=== PATIENT | female | born 1990 | race Two or more races ===

== ENCOUNTER 2017-02-16 10:42 | Emergency (ER) | payer MEDICAID ==
[2017-02-16] MEDS ORDERED: DOXYcycline CAP(*) 100 MG PO ONE (13:15)
[2017-02-16 13:25] VITALS: BP 115/66
--- NOTE | 2017-02-16 13:30 | UC ---
Gilberto Samayoa Alok, scribed for Mali Scales MD on 02/16/17 at 1321 . Skin Complaint HPI - HPI Summary HPI Summary: 26 y/o female presents to the accompanied by her [facility] aide for a tick and tick bite at the right inguinal area found this morning. The patient states that the tick was able to be removed and reported to be in tact. Pt states most likely was received yesterday while walking outdoors but can't be sure. Pt denies pain or erythema at bite site as well as denies dysuria, fever, chills , or rashes. No previous h/o tick bites / wounds. Pt has NKDA. pt without any other concerns. pt states tick was not "super small" but unable to quantify size Patient medication reviewed this visit. - History of Current Complaint Time Seen by Provider: 02/16/17 13:04 Stated Complaint: TICK BITE Hx Obtained From: Patient Hx Last Menstrual Period: DEPO ?: No Onset/Duration: Gradual Onset, Lasting Days, Still Present Skin Exposure Onset/Duration: Days Ago Timing: Constant Onset Severity: Moderate Current Severity: Moderate Pain Intensity: 0 Pain Scale Used: 0-10 Numeric Location: Other - right inguinal Character: Raised - Tick Bite Aggravating: Nothing Alleviating: Nothing Associated Signs & Symptoms: Negative: Fever, Chills, Rash Related History: Insect Bite/Sting - Tick - Allergy/Home Medications Allergies/Adverse Reactions: Allergies Allergy/AdvReac Type Severity Reaction Status Date / Time No Known Allergies Allergy Verified 02/16/17 13:27 Review of Systems Constitutional: Negative Skin: Other - tick bite, tick removed from right inguinal area Eyes: Negative ENT: Negative Respiratory: Negative Cardiovascular: Negative Gastrointestinal: Negative Genitourinary: Negative Motor: Negative Neurovascular: Negative Musculoskeletal: Negative Neurological: Negative Psychological: Negative All Other Systems Reviewed And Are Negative: Yes PMH/Surg Hx/FS Hx/Imm Hx Previously Healthy: Yes Psychological History Of: Reports: Anxiety, Depression, Bipolar Disorder - Surgical History Surgical History: None - Family History Known Family History: Negative: Cardiac Disease - Social History Occupation: Employed Full-time Alcohol Use: None Substance Use Type: None Smoking Status (MU): Never Smoked Tobacco Physical Exam Triage Information Reviewed: Yes Appearance: Well-Appearing, No Pain Distress, Well-Nourished Vital Signs: Initial Vital Signs Temp 98.9 F 02/16/17 13:22 Pulse 75 02/16/17 13:22 Resp 18 02/16/17 13:22 BP 115/66 02/16/17 13:22 Pulse Ox 98 02/16/17 13:22 Vital Signs Reviewed: Yes Eye Exam: Normal Eyes: Positive: Conjunctiva Clear, Conjunctiva Inflamed ENT Exam: Normal ENT: Positive: Pharynx normal. Negative: Nasal drainage Dental Exam: Normal Neck exam: Normal Neck: Positive: Supple, Nontender, No Lymphadenopathy Respiratory Exam: Normal Respiratory: Positive: Chest non-tender, Lungs clear Cardiovascular Exam: Normal Cardiovascular: Positive: RRR, No Murmur, Pulses Normal Abdominal Exam: Normal Abdomen Description: Positive: Nontender Bowel Sounds: Positive: Present Musculoskeletal Exam: Normal Neurological Exam: Normal Neurological: Positive: Alert, Muscle Tone Normal, Fatigued Psychological Exam: Normal Skin Exam: Normal Skin: Positive: rashes, breakdown - right inguinal area - pt with small, raised erythema (3mm) from report recent tick removal. No retrained part visible Pt's body examined - no other ticks noted, Other - right inguinal area - pt with small, raised erythema (3mm) from report recent tick removal. No retrained part visible Course/Dx - Course Course Of Treatment: Pt reports removed a tick from right inguinal area this morning. No retained parts noted. d/w pt and aide at length - unclear duration of attachment, tick not available for review. Pt given prophylaxis doxycycline. forms completed - Diagnoses Provider Diagnoses: tick bite Discharge - Discharge Plan Condition: Stable Disposition: HOME Patient Education Materials: Tick Bite (ED) Referrals: Vance Griffin MD [Primary Care Provider] - Additional Instructions: Keep area clean and dry You were given the 1 time prophylaxis for Lyme's disease since it is uncertain how long the tick has been attached It is important that you wear long shirts and pants when you are outside in a wooded area. Carefully check your body everywhere for ticks when you come inside Call your doctor or return with questions or concerns The documentation as recorded by the Gilberto duval Alok accurately reflects the service I personally performed and the decisions made by me, Mali Scales MD.
== END 2017-02-16 13:34 | disposition home or self-care (01) ==
LOC: UCEAST 10:42
DX: S30.861A Insect bite (nonvenomous) of abdominal wall, initial encounter (principal); W57.XXXA Bitten or stung by nonvenomous insect and other nonvenomous arthropods, initial encounter; F41.9 Anxiety disorder, unspecified; F32.9 Major depressive disorder, single episode, unspecified
CPT/HCPCS: 99212; A9270-GY; G0463

== ENCOUNTER 2017-04-17 14:08 | Emergency (ER) | payer MEDICAID ==
[2017-04-17 15:47] VITALS: BP 107/75
--- NOTE | 2017-04-17 16:28 | UC ---
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 no fall hurts to twist and bend no leg pain or paresthesia no bowel or bladder dysfunction - History of Current Complaint Chief Complaint: UCBackPain Stated Complaint: BACK PAIN Time Seen by Provider: 04/17/17 16:07 Hx Obtained From: Patient Hx Last Menstrual Period: DOES NOT HAVE REG PERIODS, IS ON DEPO Onset/Duration: Sudden Onset, Lasting Hours Timing: Constant Severity Initially: Moderate Severity Currently: Moderate Pain Intensity: 4 Pain Scale Used: 0-10 Numeric Back Pain: Is Diffuse Character: Aching, Throbbing, Spasmodic Aggravating: Movement, Lifting, Bending Alleviating: Rest Associated Signs And Symptoms: Positive: Negative - Allergies/Home Medications Allergies/Adverse Reactions: Allergies Allergy/AdvReac Type Severity Reaction Status Date / Time No Known Allergies Allergy Verified 04/17/17 15:38 Home Medications: Home Medications Docusate CAP* [Colace Cap*] 100 mg PO DAILY 04/17/17 [History Confirmed 04/17/17 ] Fluticasone NASAL * [Flonase *] 2 spray BOTH NARES DAILY 04/17/17 [History Confirmed 04/17/17] PMH/Surg Hx/FS Hx/Imm Hx Previously Healthy: Yes Psychological History: Anxiety, Depression, Bipolar Disorder - Surgical History Surgical History: None - Family History Known Family History: Positive: Hypertension Negative: Cardiac Disease - Social History Alcohol Use: None Substance Use Type: None Smoking Status (MU): Never Smoked Tobacco Review of Systems Constitutional: Negative Skin: Negative Eyes: Negative ENT: Negative Respiratory: Negative Cardiovascular: Negative Gastrointestinal: Negative Genitourinary: Negative Motor: Negative Neurovascular: Negative Musculoskeletal: Myalgia Neurological: Negative Psychological: Negative All Other Systems Reviewed And Are Negative: Yes Physical Exam Triage Information Reviewed: Yes Appearance: Well-Appearing, No Pain Distress, Well-Nourished Vital Signs: Initial Vital Signs Temp 97.6 F 04/17/17 15:42 Pulse 83 04/17/17 15:42 Resp 14 04/17/17 15:42 BP 107/75 04/17/17 15:42 Pulse Ox 100 04/17/17 15:42 Vital Signs Reviewed: Yes Eyes: Positive: Conjunctiva Clear ENT: Positive: Hearing grossly normal. Negative: Nasal congestion, Nasal drainage, Trismus, Muffled/hoarse voice Dental: Negative: Dental Fracture @, Abscess @ Neck: Positive: Supple, Nontender, No Lymphadenopathy Respiratory: Positive: Lungs clear, Normal breath sounds, No respiratory distress, No accessory muscle use Cardiovascular: Positive: RRR, No Murmur Musculoskeletal: Positive: ROM Intact, No Edema Neurological: Positive: Alert Psychological Exam: Normal Skin Exam: Normal Back Pain Course/Dx - Differential Dx/Diagnosis Provider Diagnoses: acute lumbar myofascial strain/spasm Discharge - Discharge Plan Condition: Stable Disposition: HOME Prescriptions: Naproxen TAB* [Naprosyn 375 mg TAB*] 375 mg PO BID PRN #14 tab PRN Reason: Pain Patient Education Materials: Low Back Strain (ED) Referrals: Marimar Tompkins MD [Primary Care Provider] - 5 Days Images Front/Back of Body, Lg ([place]ill): 1 - bilateral paraspinous tenderness/no midline mita pain/decreased ROM/(-) SLR
== END 2017-04-17 16:29 | disposition home or self-care (01) ==
LOC: UCCORT 14:08
DX: S39.012A Strain of muscle, fascia and tendon of lower back, initial encounter (principal); X58.XXXA Exposure to other specified factors, initial encounter; Y93.02 Activity, running; Y92.9 Unspecified place or not applicable; M62.830 Muscle spasm of back; F41.9 Anxiety disorder, unspecified; F32.9 Major depressive disorder, single episode, unspecified
CPT/HCPCS: 99212; G0463

== ENCOUNTER 2019-12-24 08:55 | Emergency (ER) | payer MEDICAID ==
--- OUTSIDE RECORDS SUMMARY | 2019-12-24 09:26 | XMS REPORT ---
:1990 Author Organization [facility] Care Team Providers Name Role Phone REECE SHORE Primary Care Physician Unavailable Allergies, Adverse Reactions, Alerts Allergy Code CodeSystem Reaction Severity Criticality Status Start Substance Date Moderate Medications Medication Medication Medication Start Stop Route Dose Status Fill Code CodeSystem Date Date Instructions fluoxetine 222413 RxNorm 2019-06 oral 40 mg active for 30 -10 capsule day(s) risperidone 351097 RxNorm 2019-06 oral 2 mg active for 30 -10 tablet day(s) lithium 737698 RxNorm 2019-06 oral 300 mg active for 30 carbonate -10 capsule day(s) Problems Problem Name Code CodeSystem Alternate Alternate Start End Status Narrative Code CodeSystem Date Date Unspecified 32497515 SNOMED-CT Active anxiety 4-02 disorder Disturbance 39802761 SNOMED-CT Active of activity 4-02 and attention Relevant diagnostic tests/laboratory data Narrative No Information Procedures Procedure Code CodeSystem Target Date of Status Service Device Device Device Name Site Procedure Delivery Code Name UID Location Psychotherap [id number] SNOMED-CT () 2019-05-06 complete Mental y, 44 04 d Health- minutes with [place] patient [address], [id number] [id number] Psychotherap [id number] SNOMED-CT () 2019-05-20 complete Mental y, 45 04 d Health- minutes with [place] patient [address], [id number] Psychotherap [id number] SNOMED-CT () 2019-04-05 complete Mental y, 45 04 d Health- minutes with [place] patient [address], [id number] [id number] Office or [id number] SNOMED-CT () 2019-10-28 complete Mental other 7 d Health- outpatient [place] visit for [address], [facility], of an [place], established [id number] patient, [phone] which requires at least 2 of these 3 benavidez components: An expanded problem focused history; An expanded problem focused examination; Medical decision making of low Office or [id number] SNOMED-CT () 2019-07-11 complete Mental other 7 d Health- outpatient [place] visit for [address], of an [place], established [id number] patient, [phone] which requires at least 2 of these 3 benavidez components: An expanded problem focused history; An expanded problem focused examination; Medical decision making of [facility] Office or [id number] SNOMED-CT () 2019-04-15 complete Mental other 6 d Health- outpatient [place] visit for [address], of an [place], established [id number] patient, [phone] which requires at least 2 of these 3 benavidez components: A problem focused history; A problem focused examination; Straightforw adele medical decision making. Shanelle SNOMED-CT () 2019-01-26 complete Mental d Health[address], [id number] SNOMED-CT () 2019-02-17 complete Mental d Health[address], [id number] SNOMED-CT () 2019-02-25 complete Mental d Health[address], [id number] SNOMED-CT () 2019-03-11 complete Mental d Health[address], [id number] SNOMED-CT () 2019-03-25 complete Mental d Health[address], [id number] SNOMED-CT () 2019-04-15 complete Mental d Health[address], [id number] SNOMED-CT () 2019-08-19 complete Mental d Health[address], [id number] SNOMED-CT () 2019-09-30 complete Mental d [address], [id number] SNOMED-CT () 2019-10-14 complete Mental d [address], [id number] SNOMED-CT () 2019-04-15 complete Mental d [address], [id number] [id number] SNOMED-CT () 2019-06-03 complete Mental d [address], [id number] [id number] SNOMED-CT () 2019-06-17 [facility] Mental d [address], [id number] SNOMED-CT () 2019-07-08 [facility] Mental d [address], [id number] [id number] SNOMED-CT () 2019-07-15 [facility] Mental d [address], [id number] [id number] SNOMED-CT () 2019-07-29 [facility] Mental d [address], [id number] [phone] SNOMED-CT () 2019-08-12 [facility] Mental d [address], [id number] Encounters/Encounter Diagnoses Encounter Encounter Diagnosis Diagnosis Diagnosis Date of Service Name Code Code Name CodeSystem Diagnosis Delivery Location SNOMED-[facility] , , Vital Signs No Information Social History Element Description Description Start End Code CodeSystem AdditionalInfo Date Date SexAssignedAtBirth Female 1989-10 F AdministrativeGender 11-18 Hospital Discharge Instructions Reason For Referral Medical Equipment FDA Assessments
--- OUTSIDE RECORDS SUMMARY | 2019-12-24 09:26 | XMS REPORT | Continuity of Care Document ---
:1990 External Reference #:[id number] Author Name Nikhil Spaulding NP (transmitted by agent of provider Jia Sweeney) Address [address] [place] [address] Care Team Providers Name Role Phone Marimar Tompkins MD - Internal Care Team Information [employer] Research Scientist Medicine Problems Active Problems Provider Date Anxiety state Vance Griffin M.D. Onset: 10/29/2011 Allergic rhinitis Vance Griffin M.D. Onset: 10/29/2011 Acne Vance Griffin M.D. Onset: 02/09/2013 Immunological Findings Nonspecified Other & Vance Griffin M.D. Onset: 01/2013 Unspecified Impulse control disorder Marimar Tompkins M.D. Onset: 10/28/2018 Moderate intellectual disability Marimar Tompkins M.D. Onset: 10/28/2018 Gingivitis Marimar Tompkins M.D. Onset: 10/28/2018 Conduct disorder Marimar Tompkins M.D. Onset: 10/28/2018 Note: Dr. Clark Social History Type Date Description Comments Sex Unknown Tobacco Use Start: Unknown Never Smoked Cigarettes ETOH Use Never used alcohol Recreational Drug Use Never Used Drugs Tobacco Use Start: Unknown Patient has never smoked Smoking Status Reviewed: 12/09/19 Patient has never smoked Exercise Type/Frequency Exercises sporadically Allergies, Adverse Reactions, Alerts Description No Known Drug Allergies Medications Active Medications SIG Qnty Indications Ordering Date Provider Hydrocortisone Apply to 28.350gm Nikhil Spaulding NP 12/09/2019 1% Cream affected areas twice daily for three days prn Fluticasone Propionate 2 sprays each 16units J06.9 Nikhil Spaulding NP 2019 nostril qd. 50mcg/Act Suspension Cetirizine HCL 1 tab by mouth 90tabs Marimar Tompkins, 09/25/2019 10mg Once A Day For M.D. Tablets Allergies Oyster Shell Calcium + take 1 tab by 90tabs Nikhil Spaulding NP 08/23/2018 D3 mouth every day 109-670ng-Arho Tablets Ibuprofen 2 tabs PO Q 6 Nikhil Spaulding NP 01/30/2017 200mg Tablets hrs prn [place] Cough Drops one lozenge Q 2 60units J01.90 Nikhil Spaulding NP 01/30/2017 5.8mg hrs prn sore Lozenges throat/cough Guaifenesin 2 teaspoons po q 300ml Gypsy Enamorado, 11/08/2015 100mg/5ML 4 h prn for M.D. Syrup cough Multi Vitamin/Minerals 1 tab by mouth 90tabs Z12.4 Allegra Velez MD 2010 Full Spectrum every day Tablets Depo-Provera 1ml im 12 weeks 1Kit Gypsy Enamorado, Contraceptive M.D. 150mg/ml Suspension [place] Carbonate 1 cap po daily 60caps Gypsy Enamorado, 300mg at 4pm & 2 caps M.D. Capsules at 8pm Tylenol 2 tab by mouth 60tabs Nikhil Spaulding NP 325mg Tablets every 4 hours as needed Fluoxetine HCL 2 po qd 90caps Unknown 20mg Capsules Maalox Max 30ml by mouth Unknown every 4 hours as [phone]/5ML needed heartburn Suspension Risperdal 1 by mouth once Unknown 1mg Tablets a day History Medications Enema use tap water enema 133ml Marie Nunez MD 11/23/2019 - Enema once daily as needed 12/08/2019 for stool impaction. report if needing to use more than 2 days in a row Medications Administered in Office Medication SIG Qnty Indications Ordering Provider Date PPD Injection Nurse Visit Rajesh 07/30/2011 Immunizations CPT Code Status Date Vaccine Lot # [id number] Given 07/29/2019 Fluzone High Dose 44057 Given 08/16/2018 Influenza Virus Vaccine, Quadrivalent, Split, [id number] Preservative Free 10817 Given 08/12/2017 Influenza Virus Vaccine, Quadrivalent, Split, Preservative Free 32515 Given 08/16/2016 Influenza Virus Vaccine, Quadrivalent, Split, Preservative Free Q2037 Given 08/10/2015 Fluvirin Im 3Yrs And Older 61943 Given 09/27/2014 Flu Vaccine Split Virus Preservative Free For Indiv [id number] 3Yr Older 64241 Given 07/21/2013 Tdap - Tetanus/Diptheria/Acellular Pertussis [id number] Q2038 Given 07/26/2012 Fluzone Vaccine 14046 Given 11/20/2000 Td Toxoids Adsorbed For Use 7Yrs Or Older For Intramuscular Use [id number] Refused 12/07/2012 Gardasil (HPV) Vital Signs Date Vital Result Comment 12/09/2019 9:51am Height 69 inches 5'9" Weight 188.00 lb Heart Rate 76 /min BP Systolic Sitting 107 mmHg BP Diastolic Sitting 74 mmHg Body Temperature 98.4 F O2 % BldC Oximetry 100 % BMI (Body Mass Index) 27.8 kg/m2 06/08/2019 10:07am Height 69 inches 5'9" Weight 180.25 lb Heart Rate 69 /min BP Systolic Sitting 120 mmHg Rue reg cuff BP Diastolic Sitting 78 mmHg Rue reg cuff O2 % BldC Oximetry 100 % BMI (Body Mass Index) 26.6 kg/m2 Results Test Acquired Date Facility Test Result H/L Range Note Laboratory test 09/02/2019 [facility] TSH 2.03 Normal 0.34- 5.[address] (Thyroid mcIU/[place] [address] Stim [phone] Horm) [place] 0.48 mmol/L Low 0.6-1.2 Comp Metabolic 09/02/2019 [facility] Sodium 141 mmol/L Normal 135-[address] [place] [address] [phone] Potassium 4.5 mmol/L Normal 3.5-5.0 Chloride 111 mmol/L Normal 101-111 Co2 Carbon Dioxide 25 mmol/L Normal 22-32 Anion Gap 5 mmol/L Normal 2-11 Glucose 89 mg/dL Normal 70-100 Blood Urea Nitrogen 7 mg/dL Normal 6-24 Creatinine 0.76 mg/dL Normal 0.51-0.95 BUN/Creatinine Ratio 9.2 Normal 8-20 Calcium 9.6 mg/dL Normal 8.6-10.3 Total Protein 6.7 g/dL Normal 6.4-8.9 Albumin 4.0 g/dL Normal 3.2-5.2 Globulin 2.7 g/dL Normal 2-4 Albumin/Globulin Ratio 1.5 Normal 1-3 Total Bilirubin 0.40 mg/dL Normal 0.2-1.0 Alkaline Phosphatase 100 U/L Normal 34-104 Alt 11 U/L Normal 7-52 Ast 13 U/L Normal 13-39 Egfr Non- 90.0 >60 Egfr 108.9 >60 1 Laboratory test 09/02/2019 [facility] T3 Free 3.30 pg/mL Normal 2.5-3.9 [address] [place] [address] [phone] Free T4 (Free Thyroxine) 0.89 ng/dL Normal 0.61-1.12 1 Because ethnic data is not always readily available, this report includes an eGFR for both -Americans and non- Americans. The National Kidney Disease Education Program (NKDEP) does not endorse the use of the MDRD equation for patients that are not between the ages of 18 and 70, are , have extremes of body size, muscle mass, or nutritional status, or are non- or non-. According to the National Kidney Foundation, irrespective of diagnosis, the stage of the disease is based on the level of kidney function: Stage Description GFR(mL/min/1.73 m(2)) 1 Kidney damage with normal or decreased GFR 90 2 Kidney damage with mild decrease in GFR 60-89 3 Moderate decrease in GFR 30-59 4 Severe decrease in GFR 15-29 5 Kidney failure <15 (or dialysis) Procedures Date Code Description Status 10/26/2014 [id number] Diabetic Retinal Eye Exam Completed Medical Devices Description No Information Available Encounters Type Date Location Provider Dx Diagnosis Office Visit 11/01/2019 2:[facility]p [facility] Jeanne Dominguez MD L70.0 Acne vulgaris Office Visit 07/26/2019 2:00p Millie Dominguez MD L70.0 Acne vulgaris Assessments Date Code Description Provider 12/09/2019 Z00.00 Encounter for general adult medical examination Nikhil Spaulding , ANTISQUEAK APPLIER without abnormal findings 12/09/2019 J06.9 Acute upper respiratory infection, unspecified Nikhil Spaulding, ANTISQUEAK APPLIER 12/09/2019 Z79.899 Other custodial (current) drug therapy Nihkil Spaulding, ANTISQUEAK APPLIER 12/09/2019 R20.2 Paresthesia of skin Nikhil SpauldingROBIN 11/01/2019 L70.0 Acne vulgaris Jeanne Dominguez MD 07/26/2019 L70.0 Acne vulgaris Jeanne Dominguez MD Plan of Treatment 12/09/2019 - Nikhil Spaulding NPZ00.00 Encounter for general adult medical examination without abnormal findingsComments:VACCINES:Flu shot every year in the fall.Your last tetanus vaccine was in 2012. You will be due for a booster in 2022, unless you sustain a significant injury.SCREENING:Monthly self breast exams recommended. [facility]J06.9 Acute upper respiratory infection, unspecifiedNew Medication:Fluticasone Propionate 50 mcg/ Act - 2 sprays each nostril qd.Comments:Your symptoms are consistent with a viral upper respiratory infection. I recommend treating symptomatically. Start using the Flonase, two sprays each nostril once daily, for the next two weeks. Drink plenty of fluids and try to rest as much as possible. If your symptoms worsen or do not improve please call the office.Z79.899 Other termite exterminator (current ) drug jggrwafX26.2 Paresthesia of skin Functional Status Description No Information Available Mental Status Description No Information Available Referrals Description No Information Available
[2019-12-24 09:55] VITALS: BP 116/69
--- NOTE | 2019-12-24 10:33 | UC ---
UC General HPI - HPI Summary HPI Summary: patient noted some pain with urination 4 days ago and that has not resolved--- staff members at her [facility] wants her to get checked---she denies vaginal discharge recent sexual encounters--no fevers chills, nausea/vomiting - History of Current Complaint Chief Complaint: UCGU Stated Complaint: BURNING WHEN URINATING Time Seen by Provider: 12/24/19 10:04 Hx Obtained From: Patient Hx Last Menstrual Period: DOES NOT HAVE REG PERIODS, IS ON DEPO Onset/Duration: Gradual Onset, Lasting Days, Resolved Pain Intensity: 0 Associated Signs & Symptoms: Positive: Dysuria - now resolved - Allergy/Home Medications Allergies/Adverse Reactions: Allergies Allergy/AdvReac Type Severity Reaction Status Date / Time No Known Allergies Allergy Verified 12/24/19 09:51 Home Medications: Home Medications FLUoxetine CAP* [Prozac CAP*] 40 mg PO DAILY 08/22/14 [History Confirmed ] Fexofenadine (NF) [Pao 180 (NF)] 180 mg PO DAILY PRN 08/22/14 [History Confirmed 12/24/19] [place] Carbonate TAB* 600 mg PO BEDTIME 08/22/14 [History Confirmed 12/24/19] risperiDONE TAB* [Risperdal*] 1 mg PO DAILY 08/22/14 [History Confirmed 12/24/19 ] [place] Carbonate TAB* 150 mg PO 2000 12/20/15 [History Confirmed 12/24/19] Multivitamins/Minerals TAB* [Theragran/minerals TAB*] 1 tab PO DAILY 12/20/15 [ History Confirmed 12/24/19] guaiFENesin 100 mg/5 ml LIQ [Robitussin 100 mg/5ml LIQ] 10 ml PO Q4H PRN [History Confirmed 12/24/19] medroxyPROGESTERone ACETATE* [DEPO-Provera*] 150 mg IM Q3M 12/20/15 [History Confirmed 12/24/19] Bacitracin OINTMENT* 1 applic TOPICAL TID 12/24/19 [History Confirmed 12/24/19] Calcium Carbonate/Vitamin D3 [Oyster Shell 500Mg-Vit D3 5Mcg] 1 each PO DAILY WITH MEAL 12/24/19 [History Confirmed 12/24/19] Cetirizine HCl [All Day Allergy] 10 mg PO DAILY WITH MEAL 12/24/19 [History Confirmed 12/24/19] PMH/Surg Hx/FS Hx/Imm Hx Previously Healthy: No Psychological History: Bipolar Disorder - Surgical History Surgical History: None - Family History Known Family History: Positive: Hypertension Negative: Cardiac Disease - Social History Occupation: Disabled Lives: Care Home Alcohol Use: None Substance Use Type: None Smoking Status (MU): Never Smoked Tobacco Review of Systems All Other Systems Reviewed And Are Negative: Yes Constitutional: Positive: Negative Skin: Positive: Negative Eyes: Positive: Negative ENT: Positive: Negative Respiratory: Positive: Negative Cardiovascular: Positive: Negative Gastrointestinal: Positive: Negative Genitourinary: Positive: Dysuria - resolved thursday no c/o today Motor: Positive: Negative Neurovascular: Positive: Negative Musculoskeletal: Positive: Negative Neurological/Mental Status: Positive: Negative Psychological: Positive: Negative Is Patient Immunocompromised?: No Physical Exam Triage Information Reviewed: Yes Appearance: Well-Appearing, No Pain Distress, Well-Nourished Vital Signs: Initial Vital Signs Temp 98.6 F 12/24/19 09:51 Pulse 75 12/24/19 09:51 Resp 19 12/24/19 09:51 BP 116/69 12/24/19 09:51 Pulse Ox 99 12/24/19 09:51 Vital Signs Reviewed: Yes Eye Exam: Normal Eyes: Positive: Conjunctiva Clear ENT Exam: Normal ENT: Positive: Normal ENT inspection, Hearing grossly normal. Negative: Trismus , Muffled voice, Hoarse voice Dental Exam: Normal Neck exam: Normal Neck: Positive: Supple, Nontender, No Lymphadenopathy Respiratory Exam: Normal Respiratory: Positive: Chest non-tender, Lungs clear, Normal breath sounds, No respiratory distress, No accessory muscle use Cardiovascular Exam: Normal Cardiovascular: Positive: RRR, Pulses Normal, Brisk Capillary Refill Abdominal Exam: Normal Abdomen Description: Positive: Nontender, No Organomegaly, Soft. Negative: CVA Tenderness (R), CVA Tenderness (L) Musculoskeletal Exam: Normal Musculoskeletal: Positive: Strength Intact, ROM Intact, No Edema Neurological Exam: Normal Neurological: Positive: Alert, Muscle Tone Normal Psychological Exam: Normal Skin Exam: Normal Diagnostics - Laboratory Lab Results: ua wnl, u preg negative Course/Dx - Course Course Of Treatment: increase fluids, follow with pcp or return as needed - Diagnoses Provider Diagnosis: Dysuria Discharge ED - Sign-Out/Discharge Documenting (check all that apply): Patient Departure All imaging exams completed and their final reports reviewed: No Studies - Discharge Plan Condition: Stable Disposition: HOME Patient Education Materials: Dysuria (ED) Referrals: Marimar Tompkins MD [Primary Care Provider] - If Needed - Billing Disposition and Condition Condition: STABLE Disposition: Home
== END 2019-12-24 10:52 | disposition home or self-care (01) ==
LOC: UCEAST 08:55
DX: R30.0 Dysuria (principal); F31.9 Bipolar disorder, unspecified; Z79.899 Other long term (current) drug therapy
CPT/HCPCS: 81003; 84702; 99211; G0463

== ENCOUNTER 2020-02-16 22:01 | Emergency (ER) | payer MEDICAID ==
[2020-02-16 22:34] LABS: Urine Appearance Cloudy; Urine Bilirubin Negative (Negative); Urine Blood Negative (Negative); Urine Color Yellow; Urine Glucose Negative (Negative); Urine Ketones Negative (Negative); Urine Nitrite Negative (Negative); Urine Protein Negative (Negative); Urine Specific Gravity 1.014 (1.010-1.030); Urine Urobilinogen Negative (Negative)
--- NOTE | 2020-02-16 22:51 | ED ---
Psychiatric Complaint - HPI Summary HPI Summary: 29 year old female presents with increasing depression today. She states life is causing increasing stress. Not getting her [place] gifts is one of the causes of stress. She denies any drug or alcohol use. She denies any suicidal or homicidal thoughts. She has no history of her harming herself. she has appointment with her therapist tomorrow. - History Of Current Complaint Chief Complaint: EDMentalHealth Time Seen by Provider: 02/16/20 22:17 Hx Last Menstrual Period: DOES NOT HAVE REG PERIODS, IS ON DEPO - Allergies/Home Medications Allergies/Adverse Reactions: Allergies Allergy/AdvReac Type Severity Reaction Status Date / Time No Known Allergies Allergy Verified 12/24/19 09:51 Home Medications: Home Medications FLUoxetine CAP* [Prozac CAP*] 40 mg PO DAILY 08/22/14 [History Confirmed ] Fexofenadine (NF) [Pao 180 (NF)] 180 mg PO DAILY PRN 08/22/14 [History Confirmed 02/16/20] risperiDONE TAB* [Risperdal*] 1 mg PO DAILY 08/22/14 [History Confirmed 02/16/20 ] Multivitamins/Minerals TAB* [Theragran/minerals TAB*] 1 tab PO DAILY 12/20/15 [ History Confirmed 02/16/20] guaiFENesin 100 mg/5 ml LIQ [Robitussin 100 mg/5ml LIQ] 10 ml PO Q4H PRN [History Confirmed 02/16/20] Bacitracin OINTMENT* 1 applic TOPICAL TID 12/24/19 [History Confirmed 02/16/20] Calcium Carbonate/Vitamin D3 [[place] Shell 500Mg-Vit D3 5Mcg] 1 each PO DAILY WITH MEAL 12/24/19 [History Confirmed 02/16/20] Cetirizine* [ZyrTEC 10 MG TAB*] 10 mg PO DAILY PRN 02/16/20 [History Confirmed 02/16/20] [place] Carbonate TAB* 300 mg PO 1600 02/16/20 [History Confirmed 02/16/20] [place] Carbonate TAB* 600 mg PO BEDTIME 02/16/20 [History Confirmed 02/16/20] medroxyPROGESTERone ACETATE* [DEPO-Provera*] 150 mg IM Q3M 02/16/20 [History Confirmed 02/16/20] PMH/Surg Hx/FS Hx/Imm Hx Endocrine/Hematology History: Denies: Hx Diabetes, Hx Thyroid Disease Cardiovascular History: Denies: Hx Hypertension Respiratory History: Reports: Hx Seasonal Allergies Denies: Hx Asthma, Hx Chronic Obstructive Pulmonary Disease (COPD) GI History: Denies: Hx Ulcer Psychiatric History: Reports: Hx Anxiety, Hx Attention Deficit Hyperactivity Disorder, Hx Depression, Hx Post Traumatic Stress Disorder, Hx Bipolar Disorder , Hx of Violent Episodes Against Others, Other Psychiatric Issues/Disorders - hx of cutting Denies: Hx Eating Disorder Infectious Disease History: No Infectious Disease History: Denies: Hx Hepatitis, Hx Human Immunodeficiency Virus (HIV), Traveled Outside the [place] in Last 30 Days - Family History Known Family History: Positive: Hypertension Negative: Cardiac Disease - Social History Alcohol Use: None Substance Use Type: Reports: Excessive Caffeine Hx Tobacco Use: No Smoking Status (MU): Never Smoked Tobacco Review of Systems Negative: Fever Negative: Chest Pain Negative: Shortness Of Breath Positive: Depressed All Other Systems Reviewed And Are Negative: Yes Physical Exam Triage Information Reviewed: Yes Vital Signs On Initial Exam: Initial Vitals Temp Pulse Resp BP Pulse Ox 98.1 F 85 16 140/81 98 02/16/20 22:04 02/16/20 22:04 02/16/20 22:04 02/16/20 22:04 02/16/20 22:04 Vital Signs Reviewed: Yes Appearance: Positive: Well-Appearing Skin: Positive: Warm, Dry Head/Face: Positive: Normal Head/Face Inspection Eyes: Positive: Normal, Conjunctiva Clear ENT: Positive: Pharynx normal Respiratory/Lung Sounds: Positive: Clear to Auscultation, Breath Sounds Present Cardiovascular: Positive: Normal, RRR Musculoskeletal: Positive: Normal Neurological: Positive: Normal Psychiatric: Positive: Normal Procedures - Sedation Patient Received Moderate/Deep Sedation with Procedure: No Diagnostics - Vital Signs Vital Signs Temp Pulse Resp BP Pulse Ox 02/16/20 22:04 98.1 F 85 16 140/81 98 - Laboratory Lab Results: Lab Results 02/16/20 Range/Units 22:23 Urine Color Yellow Urine Appearance Cloudy Urine pH 6.0 (5-9) Ur Specific [place] 1.014 (1.010-1.030) Urine Protein Negative (Negative) Urine Ketones Negative (Negative) Urine Blood Negative (Negative) Urine Nitrate Negative (Negative) Urine Bilirubin Negative (Negative) Urine Urobilinogen Negative (Negative) Ur Leukocyte Esterase Negative (Negative) Urine Glucose Negative (Negative) Urine Ascorbic Acid * A (Negative) Result Diagrams: 02/16/20 22:41 02/16/20 22:41 Lab Statement: Any lab studies that have been ordered have been reviewed, and results considered in the medical decision making process. Course/Dx - Course Course Of Treatment: 29 year old female presents with increasing depression today. She states life is causing increasing stress. Not getting her [place] gifts is one of the causes of stress. She denies any drug or alcohol use. She denies any suicidal or homicidal thoughts. She has no history of her harming herself. On exam has a normal physical exam. is medical clear for mental health. after mental health patient will be discharged. - Differential Dx/Clinical Impression Differential Diagnosis/HQI/PQRI: Positive: Anxiety, Depression, Suicidal Ideation Provider Diagnosis: Mood disorder - Critical Care Time Critical Care Statement: Critical care time is provided exclusive of any time spent performing procedures. Discharge ED - Sign-Out/Discharge Documenting (check all that apply): Patient Departure - Discharge Plan Condition: Stable Disposition: HOME Referrals: Marimar Tompkins MD [Primary Care Provider] - - Billing Disposition and Condition Condition: STABLE Disposition: Home
[2020-02-16 22:54] LABS: Urine Benzodiazepine Screen None Detected (None Detect); Urine Opiates Screen None Detected (None Detect)
[2020-02-16 22:57] LABS: ABS Basophils 0.1 10^3/ul (0-0.2); ABS Eosinophils 0.3 10^3/ul (0-0.6); ABS Lymphocytes 2.3 10^3/ul (1.0-4.8); ABS Monocytes 0.6 10^3/ul (0-0.8); ABS Neutrophils 7.2 10^3/ul (1.5-7.7); Eosinophil % 2.5 %; Hematocrit 41 % (35-47); Hemoglobin 13.8 g/dL (12.0-16.0); Lymphocyte % 22.1 %; Mean Corpuscular HGB Conc 34 g/dL (31-36); Mean Corpuscular Hemoglobin 26 pg (27-31); Mean Corpuscular Volume 79 fL (80-97); Mean Platelet Volume 7.5 fL (7.4-10.4); Nucleated Red Blood Cells % 0.1; Platelet Count 321 10^3/uL (150-450); Red Blood Count 5.27 10^6 /uL (3.70-4.87); Red Cell Distribution Width 14 % (10-15); White Blood Count 10.5 10^3/uL (3.5-10.8)
[2020-02-16 23:15] LABS: ALT 12 U/L (7-52); AST 14 U/L (13-39); Albumin 4.5 g/dL (3.2-5.2); Albumin/Globulin Ratio 1.5 (1-3); Alkaline Phosphatase 93 U/L (34-104); Anion Gap 8 mmol/L (2-11); BUN/Creatinine Ratio 14.5 (8-20); Blood Urea Nitrogen 10 mg/dL (6-24); CO2 Carbon Dioxide 21 mmol/L (22-32); Calcium 9.4 mg/dL (8.6-10.3); Chloride 109 mmol/L (101-111); EGFR African American 120.9 (>60); EGFR Non-African American 99.9 (>60); Glucose 101 mg/dL (70-100); Potassium 3.7 mmol/L (3.5-5.0); Sodium 138 mmol/L (135-145); Total Protein 7.5 g/dL (6.4-8.9)
[2020-02-16 23:21] LABS: HCG Pregnancy < 0.60 mIU/mL
--- OUTSIDE RECORDS SUMMARY | 2020-02-16 23:27 | XMS REPORT ---
:1990 Author Organization [facility] Care Team Providers Name Role Phone REECE SHORE Primary Care Physician Unavailable Allergies, Adverse Reactions, Alerts Allergy Code CodeSystem Reaction Severity Criticality Status Start Substance Date Moderate Medications Medication Medication Medication Start Stop Route Dose Status Fill Code CodeSystem Date Date Instructions lithium 390182 RxNorm 2019-06 oral 300 mg active for 30 carbonate -10 capsule day(s) risperidone 548231 RxNorm 2019-06 oral 2 mg active for 30 -10 tablet day(s) fluoxetine 121789 RxNorm 2019-06 oral 40 mg active for 30 -10 capsule day(s) Problems Problem Name Code CodeSystem Alternate Alternate Start End Status Narrative Code CodeSystem Date Date Disturbance 60131204 SNOMED-CT Active of activity 4-02 and attention Unspecified [id number] SNOMED-CT Active anxiety 4-02 disorder Relevant diagnostic tests/laboratory data Narrative No Information Procedures Procedure Code CodeSystem Target Date of Status Service Device Device Device Name Site Procedure Delivery Code Name UID Location SNOMED-CT () 2019-01-26 complete Mental d Health- [address], [id number] SNOMED-CT () 2019-07-15 complete Mental d Health- [address], [id number] [phone] SNOMED-CT () 2019-02-17 complete Mental d Health- [address], [id number] [phone] Psychotherap [id number] SNOMED-CT () 2019-05-06 complete Mental y, 45 04 d Health- [facility] with [address], [id number] [phone] SNOMED-CT () 2019-04-15 complete Mental d Health- [address], [id number] [phone] SNOMED-CT () 2019-12-01 complete Mental d Health[address], [id number] [phone] SNOMED-CT () 2019-09-30 complete Mental d Health[address], [id number] [phone] SNOMED-CT () 2019-11-04 complete Mental d Health[address], [id number] [phone] SNOMED-CT () 2019-02-25 complete Mental d Health[address], [id number] [id number] SNOMED-CT () 2019-03-11 complete Mental d Health[address], [id number] [phone] SNOMED-CT () 2019-03-25 complete Mental d Health[address], [id number] [phone] SNOMED-CT () 2019-07-08 complete Mental d Health[address], [id number] [id number] Office [place] [id number] SNOMED-CT () 2019-07-11 complete Mental other 7 d Health- outpatient [facility] visit for [address], [facility] [id number] patient, [phone] which requires at least 2 of these 3 benavidez components: An expanded problem focused history; An expanded problem focused examination; Medical decision making of low SNOMED-CT () 2019-11-18 complete Mental d Health[address], [id number] [phone] Office or [id number] SNOMED-CT () 2019-10-28 complete Mental other 7 d Health- outpatient Ele visit for [address], [facility] [id number] patient, [phone] which requires at least 2 of these 3 benavidez components: An expanded problem focused history; An expanded problem focused examination; Medical decision making of low SNOMED-CT () 2019-06-03 complete Mental d [address], [id number] [phone] SNOMED-CT () 2019-08-12 complete Mental d [address], [id number] [id number] Office or [id number] SNOMED-CT () 2019-04-15 complete Mental other 6 d Health- outpatient [facility] visit for [address], of an [place], established [id number] patient, [phone] which requires at least 2 of these 3 benavidez components: A problem focused history; A problem focused examination; Straightforw adele medical decision making. Counselin SNOMED-CT () 2019-04-15 complete Mental d [address], [id number] [phone] SNOMED-CT () 2019-07-29 complete Mental d [address], [id number] [phone] SNOMED-CT () 2019-10-14 complete Mental d [address], [id number] [phone] SNOMED-CT () 2019-06-17 complete Mental d [address], [id number] [phone] SNOMED-CT () 2019-08-19 complete Mental d [address], [id number] [phone] Psychotherap [id number] SNOMED-CT () 2019-05-20 complete Mental y, 45 04 d Health- minutes with [address], [id number] [phone] Psychotherap [id number] SNOMED-CT () 2019-04-05 complete Mental y, 45 04 d Health- minutes with [address], [id number] [phone] Encounters/Encounter Diagnoses Encounter Encounter Diagnosis Diagnosis Diagnosis [...]
--- OUTSIDE RECORDS SUMMARY | 2020-02-16 23:27 | XMS REPORT ---
:1990 Author Organization [facility] Care Team Providers Name Role Phone REECE SHORE Primary Care Physician Unavailable Allergies, Adverse Reactions, Alerts Allergy Code CodeSystem Reaction Severity Criticality Status Start Substance Date Moderate Medications Medication Medication Medication Start Stop Route Dose Status Fill Code CodeSystem Date Date Instructions lithium 868391 RxNorm 2019-06 oral 300 mg active for 30 carbonate -10 capsule day(s) fluoxetine 033806 RxNorm 2019-06 oral 40 mg active for 30 -10 capsule day(s) risperidone 517138 RxNorm 2019-06 oral 2 mg active for 30 -10 tablet day(s) Problems Problem Name Code CodeSystem Alternate Alternate Start End Status Narrative Code CodeSystem Date Date Disturbance 68259472 SNOMED-CT Active of activity 4-02 and attention Unspecified 13193567 SNOMED-CT Active anxiety 4-02 disorder Relevant diagnostic tests/laboratory data Narrative No Information Procedures Procedure Code CodeSystem Target Date of Status Service Device Device Device Name Site Procedure Delivery Code Name UID Location SNOMED-CT () 2019-01-26 complete Mental d [address], [id number] SNOMED-CT () 2019-02-17 complete Mental d [address], [id number] [phone] SNOMED-CT () 2019-02-25 complete Mental d [address], [id number] [phone] SNOMED-CT () 2019-03-11 [facility] Mental d [address], [id number] [phone] SNOMED-CT () 2019-03-25 [facility] Mental d [address], [id number] [phone] Psychotherap [id number] SNOMED-CT () 2019-04-05 complete Mental y, 45 04 d Health- minutes with Ele patient [address], [id number] [phone] SNOMED-CT () 2019-04-15 complete Mental d Health- [address], [id number] [phone] Office or [id number] SNOMED-CT () 2019-04-15 complete Mental other 6 d Health- outpatient Ele visit for [address], [facility], established [id number] patient, [phone] which requires at least 2 of these 3 benavidez components: A problem focused history; A problem focused examination; Straightforw adele medical decision making. Counselin Psychotherap [id number] SNOMED-CT () 2019-05-06 complete Mental y, 45 04 d Health- minutes with Ele patient [address], [id number] [phone] Psychotherap [id number] SNOMED-CT () 2019-05-20 complete Mental y, 45 04 d Health- minutes with [facility] patient [address], [id number] [phone] SNOMED-CT () 2019-06-03 complete Mental d Health- [address], [id number] [phone] SNOMED-CT () 2019-06-17 complete Mental d Health- [address], [id number] [phone] SNOMED-CT () 2019-07-08 complete Mental d Health- [address], [id number] [phone] SNOMED-CT () 2019-07-15 complete Mental d Health- [address], [id number] [phone] SNOMED-CT () 2019-07-29 complete Mental d Health- [address], [id number] [phone] Office or [id number] SNOMED-CT () 2019-07-11 complete Mental other 7 d Health- outpatient Ele visit for [address], of an [place], established [id number] patient, [phone] which requires at least 2 of these 3 benavidez components: An expanded problem focused history; An expanded problem focused examination; Medical decision making of low SNOMED-CT () 2019-08-12 complete Mental d Health- [address], [id number] [phone] SNOMED-CT () 2019-08-19 complete Mental d Health- [address], [id number] [phone] SNOMED-CT () 2019-09-30 complete Mental d Health- [address], [id number] [phone] SNOMED-CT () 2019-10-14 complete Mental d Health[address], [id number] [phone] Office or [id number] SNOMED-CT () 2019-10-28 complete Mental other 7 d Health- outpatient [facility] visit for [address], [facility], of an [place], established [id number] patient, [phone] which requires at least 2 of these 3 benavidez components: An expanded problem focused history; An expanded problem focused examination; Medical decision making of low SNOMED-CT () 2019-11-04 complete Mental d Health[address], [id number] [phone] SNOMED-CT () 2019-11-18 complete Mental d Health- [address], [id number] [phone] SNOMED-CT () 2019-12-01 complete Mental d Health- [address], [id number] [phone] Psychotherap [id number] SNOMED-CT () 2019-12-23 complete Mental y, 45 04 d Health- minutes with [facility] patient [address], [id number] [phone] SNOMED-CT () 2019-04-15 complete Mental d Health- [address], [id number] [phone] Encounters/Encounter Diagnoses Encounter Encounter Diagnosis Diagnosis Diagnosis [...]
[2020-02-16 23:42] LABS: Acetaminophen < 15 mcg/mL; Alcohol 12 mg/dL (<10); Salicylate < 2.50 mg/dL (<30)
[2020-02-17 00:33] VITALS: BP 127/83
== END 2020-02-17 00:30 | disposition home or self-care (01) ==
LOC: ED 22:01
DX: F39 Unspecified mood [affective] disorder (principal); F32.9 Major depressive disorder, single episode, unspecified; F41.9 Anxiety disorder, unspecified; Z79.3 Long term (current) use of hormonal contraceptives; F90.9 Attention-deficit hyperactivity disorder, unspecified type; Z79.899 Other long term (current) drug therapy
CPT/HCPCS: 36415; 80053; 80307; 80320; 80329; 81003; 84443; 84702; 85025; 99285; G0480

== ENCOUNTER 2021-12-11 18:40 | Observation (INO) ==
[2021-12-13 11:26] VITALS: BP 101/62
== END 2021-12-13 15:25 | disposition home or self-care (01) ==
LOC: MED 18:40 → INTOOBSV 18:40
PROVIDERS: ADMIT Hospitalist; ATTEND Hospitalist